=== PATIENT | male | born 1980 | race African-American/Black ===

== ENCOUNTER 2023-11-12 08:12 | Emergency (ER) | payer BC, SELFPAY ==
[2023-11-12] MEDS ORDERED: HYDROcodone/Acetaminophen 5/325 mg Tablet ONE (09:43)
== END 2023-11-12 09:47 | disposition home or self-care (01) ==
LOC: MADERS 08:12
DX: K05.00 Acute gingivitis, plaque induced (principal); K08.89 Other specified disorders of teeth and supporting structures; E78.00 Pure hypercholesterolemia, unspecified; F17.210 Nicotine dependence, cigarettes, uncomplicated
CPT/HCPCS: 99282

== ENCOUNTER 2023-11-14 11:20 | Emergency (ER) | payer SELFPAY | END 2023-11-14 12:24 | disposition home or self-care (01) | LOC: MADERS 11:20 | DX: K05.00 Acute gingivitis, plaque induced (principal); K08.89 Other specified disorders of teeth and supporting structures; E78.00 Pure hypercholesterolemia, unspecified; F17.210 Nicotine dependence, cigarettes, uncomplicated; Z79.899 Other long term (current) drug therapy | CPT/HCPCS: 99282 ==

== ENCOUNTER 2023-11-26 06:32 | Emergency (ER) | payer SELFPAY ==
[2023-11-26] MEDS ORDERED: Ketorolac Tromethamine 60 MG/2 ML VIAL ONE (07:12)
[2023-11-26] MEDS ORDERED: Clindamycin 150 MG CAP ONE (07:12)
== END 2023-11-26 07:40 | disposition home or self-care (01) ==
LOC: MADERS 06:32
DX: K08.89 Other specified disorders of teeth and supporting structures (principal); K02.9 Dental caries, unspecified; F17.210 Nicotine dependence, cigarettes, uncomplicated
CPT/HCPCS: 96372; 99282; J1885

== ENCOUNTER 2024-04-22 18:03 | Emergency (ER) | payer SELFPAY ==
[2024-04-22] MEDS ORDERED: Penicillin V Potassium 250 MG TAB ONE (18:49)
[2024-04-22] MEDS ORDERED: Ibuprofen 800 MG TAB ONE (18:49)
== END 2024-04-22 19:00 | disposition home or self-care (01) ==
LOC: MADERS 18:03
DX: K02.9 Dental caries, unspecified (principal); F17.210 Nicotine dependence, cigarettes, uncomplicated
CPT/HCPCS: 64400